=== PATIENT | male | born 1955 | race Caucasian/White ===

== ENCOUNTER 2025-03-17 07:50 | Day surgery (SDC) | payer MEDICARE, SELFPAY ==
--- NOTE | 2025-03-12 12:37 | ESHP_ITS ---
RE: DELONTE FISHER : 1955 DATE OF ADMISSION: 03/17/2025 HISTORY OF PRESENT ILLNESS: A 70-year-old gentleman who was referred to me with elevated PSA. He had a heart transplantation done in 2018 at [facility]. He had a stroke before. He has nocturia x1. PAST SURGICAL HISTORY: Surgery on his nose for some cancer at [facility], heart transplantation in 2018, he has a pacemaker and ICD and he had a hernia operation, which was right inguinal hernia. PAST MEDICAL HISTORY: He has no history of diabetes, no history of hypertension. SOCIAL HISTORY: The patient has three children. HOME MEDICATIONS: He takes, 1. Prograf. 2. CellCept. 3. Statin medication. 4. Cialis. 5. Sertraline. 6. . ALLERGIES: NONE KNOWN. PHYSICAL EXAMINATION: HEENT: Normal. NECK: Supple. LUNGS: Clear. CARDIOVASCULAR: Heart sounds are normal. ABDOMEN: Soft without any organomegaly. No guarding. No rigidity. EXTREMITIES: Normal. GENITOURINARY: Phallus is normal. Testes are down in scrotum. RECTAL: Moderately enlarged smooth prostate with some firmness on the right prostatic lobe. LABORATORY DATA: The patient's PSA is 10.4. IMPRESSION: 1. Prostatic obstruction. 2. Prostatism. 3. Elevated PSA of 10.4. 4. History of heart transplantation. 5. History of stroke. PLAN: Cystoscopy and transrectal prostatic ultrasound with ultrasound-guided prostatic needle biopsy. Planned procedure, risks, and complications have been discussed with the patient. The patient has understood them and agreed to proceed. DT: 11:59:54 TT: 12:35:00 Ref: [id number] - TID: [id number]
--- NOTE | 2025-03-13 07:00 | EKG_ITS ---
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
[2025-03-13 08:59] VITALS: BMI 29.4
[2025-03-13 09:39] LABS: Collection Type, Urine Clean Catch; Squamous Epithelial Cell,Urine 0 /hpf (0-5)
[2025-03-13 09:54] LABS: Basophils % (Auto) 0 % (0-2.5); Eosinophils # (Auto) 0.1 Thou/mm3 (0.0-0.5); Eosinophils % (Auto) 1 % (0-10); Hematocrit 46.4 % (41.0-53.0); Hemoglobin 15.5 g/dL (13.5-16.0); Immature Granulocytes % (Auto) 0 % (0-0); Immature Granulocytes Auto 0.04 Thou/mm3 (0.00-0.00); Lymphocytes # (Auto) 2.3 Thou/mm3 (1.0-4.8); Lymphocytes % (Auto) 25 % (10-50); Mean Corpuscular HGB Conc 33.4 g/dl (31.0-37.0); Mean Corpuscular Hemoglobin 28.1 pg (25.0-35.0); Mean Corpuscular Volume 84 fL (80-100); Monocytes # (Auto) 0.6 Thou/mm3 (0.0-0.8); Monocytes % (Auto) 6 % (0-12); Neutrophils # (Auto) 6.2 Thou/mm3 (1.8-7.7); Neutrophils % (Auto) 67 % (37-80); Nucleated Red Blood Cell % 0 /100 WBC (0); Platelet Count 204 Thou/mm3 (140-440); RDW Standard Deviation 43.1 fL (35.1-43.9); Red Blood Count 5.51 Miln/mm3 (4.50-5.90); White Blood Count 9.2 Thou/mm3 (3.8-10.6)
[2025-03-13 09:58] LABS: Bilirubin,Urine Negative (Negative); Blood,Urine Negative (Negative); Clarity,Urine Clear (Clear/Hazy); Color,Urine Yellow (Lt Yel-Yel); Glucose, Urine Negative (Negative); Ketones,Urine Negative (Negative); Leukocyte Esterase,Urine Negative (Negative); Nitrite,Urine Negative (Negative); Protein,Urine Trace (Neg - Trace); RBC,Urine 2 /hpf (0-3); Specific Gravity,Urine 1.029 (1.001-1.035); Urobilinogen,Urine Negative mg/dL (0.0-1.0); WBC,Urine 2 /hpf (0-5)
[2025-03-13 10:25] LABS: Alanine Aminotransferase 9 U/L (10-49); Albumin, Serum 4.3 gm/dL (3.4-4.8); Albumin/Globulin Ratio 1.6 (1.2-2.2); Alkaline Phosphatase 87 U/L (46-116); Anion Gap 5 (7-16); Aspartate Amino Transferase 13 U/L (0-34); BUN/Creatinine Ratio 10 Ratio (12-20); Bilirubin,Total 0.5 mg/dL (0.3-1.2); Blood Urea Nitrogen 12 mg/dL (9-23); Chloride 108 mMol/L (98-107); Creatinine (Component) 1.2 mg/dL (0.6-1.3); Estimated Creatinine Clearance 67.6 mL/min (>60); Globulin 2.7 gm/dL (2.3-3.5); Glucose 95 mg/dL (74-106); Osmolality,Calculated 282 (275-295); Potassium 4.3 mMol/L (3.4-5.1); Sodium 142 mMol/L (136-145); eGFR > 60 See Note
--- NOTE | 2025-03-13 14:45 | SUR.PREOP ---
Cardiac history reviewed with Dr Gosia lr on records, requested from [facility] pt stated he used to see Dr Tate but after his insurance changed he has not seen a scientific systems analyst, He had heart transplant in [place] on 2018 and follows up with [place] yearly.
--- NOTE | 2025-03-13 15:03 | SUR.PREOP ---
Ginna pt's notified to bring pt at 0800 on Sunday for procedure.
[2025-03-17] VITALS (7 sets, daily range): BP systolic 93–118; BP diastolic 68–77; PULSE 64–73; RESP 12–19; TEMP 36.4–37.1; O2SAT 94–97; BMI 30.7
--- NOTE | 2025-03-17 09:26 | SUR.PHASEII ---
pt awake and alert, breathing unlabored on room air. v/s stable. report received from Rosalino DIGGS and Axel MOONEY.
--- NOTE | 2025-03-17 10:28 | SUR.PHASEII ---
pt awake and alert, breathing unlabored on room air. v/s stable. pt able to ambulate to wheelchair with steady gait. d/c instructions given with Ginna in room, all questions answered. pt d/c via wheelchair with all belongings.
--- NOTE | 2025-03-17 17:09 | ESOP_ITS ---
RE: DELONTE FISHER : 1955 DATE OF OPERATION: 03/17/2025 PREOPERATIVE DIAGNOSES: Prostatism, prostatic obstruction, and elevated PSA of 10.4. POSTOPERATIVE DIAGNOSES: Prostatism, prostatic obstruction, and elevated PSA of 10.4. PROCEDURES PERFORMED: Cystoscopy, urethral dilatation, and transrectal prostatic ultrasound with ultrasound-guided prostatic needle biopsy. ANESTHESIA: Monitored anesthesia by Dr. Elise. INDICATION: The patient is a 70-year-old gentleman with an elevated PSA of 10.4 with prostatism and prostatic obstruction. He had a history of heart transplantation done in the past. The patient on examination has a moderately enlarged prostate with minimal firmness on the right prostatic lobe. He was now scheduled to have cystoscopy, urethral dilatation with transrectal prostatic ultrasound with ultrasound-guided prostatic needle biopsy. Planned procedure, risks, and complications have been discussed with the patient. The patient understood them and agreed to proceed. DESCRIPTION OF PROCEDURE: After the patient was brought to the operating table under adequate monitored anesthesia given by Dr. Elise, he was placed in dorsal lithotomy position. Parts were prepped and draped in the usual fashion. Cystoscopy was then carried out in a standard fashion, which revealed adequate urethral meatus and normal-appearing urethra. Prostatic urethra revealed moderately enlarged bilobar prostate. Scope was introduced into the bladder. Residual urine 2 ounces, yellow and clear. There are no intravesical stones or tumors. The ureteral orifices were found to be normal in position and appearance. Scope was withdrawn. Urethra was dilated. The patient was then turned in left lateral position. Transrectal prostatic ultrasound was carried out. Biopsies were obtained from both lobes using ultrasound guidance. There was some malfunction of the ultrasound machine, so I could not do the measurement of the prostate gland. The patient tolerated the entire procedure well and left the room in good condition. PLAN: We will await for the biopsy report. DT: 09:45:46 TT: 17:07:00 Ref: [id number] - TID: [id number]
== END 2025-03-17 10:28 | disposition home or self-care (01) ==
PROVIDERS: Anesthesiology; PCP Family Medicine; Referring Provider Surgery; Visit Provider Surgery
PROC: (CPT 55700; principal; 2025-03-17 10:00)
PROC: 0TJB8ZZ Inspection of Bladder, Via Natural or Artificial Opening Endoscopic (ICD-10-PCS; CPT 52000; 2025-03-17 10:00)
DX: N40.1 Benign prostatic hyperplasia with lower urinary tract symptoms (principal); Z86.73 Personal history of transient ischemic attack (TIA), and cerebral infarction without residual deficits; Z94.1 Heart transplant status; Z95.0 Presence of cardiac pacemaker; Z01.810 Encounter for preprocedural cardiovascular examination; R97.20 Elevated prostate specific antigen [PSA]
CPT/HCPCS: 52281; 55700; 36415; 76942; 80053; 81001; 85025; 87086; 93005; A4217; A4649; J0694; J2250; J2405; J2704; J3010